=== PATIENT | male | born 1965 | race Caucasian/White ===

== ENCOUNTER 2023-12-12 08:10 | Day surgery (SDC) | payer OTHER ==
[~2023-12-12] VITALS: Ht 185.4 cm; Wt 117.8 kg
[~2023-12-12 08:10] MED LIST: ALLO100T PO; LIDOCAINE 2% 100MG/5ML SDV (FOR ANES.) As Ordered ONE; LISI10TA22 PO; LOPI600T PO; METF-838 PO; NS 1,000 ML IV ONE; PANT20TA6 PO; ZOLO100T PO; propofoL 200 MG/20 ML VIAL As Ordered ONE
[2023-12-12 08:53] VITALS: TEMP 97.2
[2023-12-12 09:11] VITALS: BP 133/82; O2SAT 97
== END 2023-12-12 09:17 | disposition home or self-care (01) ==
LOC: M OPP 08:10
PROVIDERS: ATTEND Surgery
DX: Z86.010 Personal history of colon polyps (principal); D12.2 Benign neoplasm of ascending colon; K63.5 Polyp of colon; E11.9 Type 2 diabetes mellitus without complications; G47.30 Sleep apnea, unspecified; Z99.89 Dependence on other enabling machines and devices; Z79.84 Long term (current) use of oral hypoglycemic drugs; Z79.899 Other long term (current) drug therapy